=== PATIENT | female | born 1995 | race Caucasian/White ===

== ENCOUNTER 2017-06-29 14:16 | Emergency (ER) | payer MEDICAID ==
[~2017-06-29] VITALS: Ht 160 cm; Wt 64.9 kg
[2017-06-29 15:48] LABS: UA SPECIFIC GRAVITY >=1.030 (1.005-1.035); microscopic required? YES; urine erythrocyte 2+ (NEGATIVE)
[2017-06-29 15:52] LABS: BASOPHIL % 0.4 % (0-2); PLATELET COUNT 341 x10^3mcL (130-400); RED CELL DISTRIBUTION WIDTH 14.1 % (11.5-14.5)
[2017-06-29 17:44] VITALS: BP 98/61
== END 2017-06-29 17:42 | disposition home or self-care (01) ==
LOC: ED 14:16
DX: O20.0 Threatened abortion (principal); Z3A.01 Less than 8 weeks gestation of pregnancy
CPT/HCPCS: 36415; 87491; 87591